=== PATIENT | female | born 1945 | race Caucasian/White ===

== ENCOUNTER 2017-07-01 20:49 | Inpatient (IN) | payer MEDICARE, MEDICAID ==
[~2017-07-01] VITALS: Ht 160 cm; Wt 44.0 kg
[2017-07-01 20:30] VITALS: BP 126/84
--- NOTE | 2017-07-01 21:30 | NUR ---
EMAIL MARKETING COORDINATOR NOTE 2030 PT ARRIVED VIA GURNEY BROUGHT BY AMBULANCE. BEDSIDE ENDORSEMENT GIVEN BY NURSE ACCOMPANIED BY AMBULANCE. PT ABLE TO RESPOND WITH "HI" IN THE BEGINNING. PER AMBULANCE NURSE, PT HAS BEEN NONVERBAL. PT REMAINS OBTUNDED. RESPIRATIONS ARE EVEN AND UNLABORED, NOT IN ANY ACUTE DISTRESS NOTED. PUPILS ARE VERY SLUGGISH. 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 NO FACIAL GRIMACING OR MOANING NOTED. UNABLE TO PERFORM PROM TO BUE/BLE. NO SKIN INJURIES NOTED. PERIPHERAL IV TO LEFT WRIST NOTED TO BE PATENT AND INTACT. DRESSING KEPT CLEAN AND DRY. ABDOMEN IS SOFT AND NONDISTENDED. HYPOACTIVE BOWEL SOUNDS TO ALL 4 QUADRANTS UPON AUSCULTATION. CURRENTLY HAS A URBAN CATH, DRAINING WELL AND FREE OF KINKS. URINE IS DARK YELLOW W/ NO SEDIMENTS NOTED. NO FACIAL GRIMACING UPON PALPATION OF BLADDER. PT ON TELE WITH SR 90 W/ PVCs. VITAL SIGNS: BP 126/84 P107 R26 T97.6 SPO2 97% RA. DR. SMITH MADE AWARE OF NEW ADMISSION. PT SEEN AND EXAMINED BY DR. SMITH WITH ORDERS CARRIED OUT. D/C IV 0.9%NS @100ML/HR, NEW ORDER FOR IV 1/2 NS 100ML/HR, INSERTION OF NGT FOR FREE WATER FLUSHING OF 200CC Q6H, COLLECT UA, AND MRSA SURVEILLANCE. SAFETY MEASURES IN PLACE, CALL LIGHT LEFT WITHIN REACH. WILL CONTINUE TO MONITOR PT THROUGHOUT SHIFT.
[2017-07-01] MEDS ORDERED: IV NS 0.9% 1,000 ML IV PRN (21:33)
[2017-07-01] MEDS ORDERED: MAGNESIUM HYDROXIDE 30 ML UDC PO PRN (22:00)
[2017-07-01] MEDS ORDERED: MAG HYDROX/AL HYDROX/SIMETH 30 ML UDC PO PRN (22:00)
[2017-07-01] MEDS ORDERED: HYDROCODONE/APAP 5/325MG 1 EACH TABLET PO PRN (22:00)
[2017-07-01] MEDS ORDERED: ONDANSETRON HCL/PF 4 MG/2 ML VIAL IVP PRN (22:00)
[2017-07-01] MEDS ORDERED: ACETAMINOPHEN 325 MG TABLET PO PRN (22:00)
[2017-07-01] MEDS ORDERED: ZOLPIDEM TARTRATE 5 MG TABLET PO PRN (22:00)
[2017-07-01] MEDS ORDERED: Z GUARD REMEDY 2 OZ OINT TP PRN (22:00)
[2017-07-01 22:42] LABS: BASOPHILS # (AUTO) 0.1 /CMM (0.0-0.2); BASOPHILS % (AUTO) 0.7 % (0.0-2.0); EOSINOPHILS # (AUTO) 0.2 /CMM (0.0-0.7); EOSINOPHILS % (AUTO) 1.4 % (0.0-6.0); HEMATOCRIT 45 % (33-45); LYMPHOCYTES # (AUTO) 2.8 /CMM (0.8-4.8); LYMPHOCYTES % (AUTO) 19.7 % (20.0-44.0); MEAN CORPUSCULAR HEMOGLOBIN 28 PG (26.0-33.0); MEAN CORPUSCULAR HGB CONC 33 g/dl (31.0-36.0); MEAN CORPUSCULAR VOLUME 84 fL (82-100); MONOCYTES # (AUTO) 1.9 /CMM (0.1-1.30); MONOCYTES % (AUTO) 13.6 % (2.0-12.0); NEUTROPHILS % (AUTO) 64.6 % (43.0-81.0); PLATELET COUNT (AUTO) 253 /CMM (150-450); RDW COEFFICIENT OF VARIATION 15.7 (11.5-15.0); RED BLOOD CELL COUNT(AUTO) 5.36 MIL/uL (4.0-5.2)
[2017-07-01 23:03] LABS: TROPONIN I 0.093 ng/mL (0.00-0.056)
[2017-07-01] MEDS ORDERED: ENOXAPARIN SODIUM 40 MG/0.4 ML DISP.SYRIN SQ ONE (23:13)
[2017-07-01 23:20] LABS: ALBUMIN 3.3 g/dL (3.4-5.0); BILIRUBIN,TOTAL 0.4 mg/dL (0.2-1.0); CALCIUM, SERUM 9.5 mg/dL (8.5-10.1); CREATININE 1.1 mg/dL (0.6-1.3); POTASSIUM 3.4 mmol/L (3.5-5.1); TOTAL PROTEIN, SERUM 8.7 g/dL (6.4-8.2)
[2017-07-01] MEDS: IV 1/2NS 1000 ML 1,000 ML IV PRN (23:24)
[2017-07-01] MEDS: ENOXAPARIN SODIUM 40 MG/0.4 ML DISP.SYRIN SQ SCH (23:25)
[2017-07-01] MEDS ORDERED: OMEP20CA10 PO (23:43)
[2017-07-01] MEDS ORDERED: QUET200T PO (23:43)
[2017-07-01] MEDS ORDERED: RISP1TAB7 PO (23:43)
[2017-07-01] MEDS ORDERED: FLUT1BLS IH (23:43)
[2017-07-01] MEDS ORDERED: RISP3TAB5 PO (23:43)
[2017-07-01] MEDS ORDERED: DIVA250T PO (23:43)
[2017-07-01] MEDS ORDERED: TRAZ-147 PO (23:43)
[2017-07-01] MEDS ORDERED: MEGE400O5 GT (23:43)
[2017-07-01] MEDS ORDERED: AMLO5TAB2 PO (23:43)
[2017-07-02] VITALS: BP 126/83
--- NOTE | 2017-07-02 | NUR ---
RN NOTES NGT WAS INSERTED WITH CHARGE NURSE AT BEDSIDE. NGT SIZE 14Fr. PT TOLERATED PROCEDURE WELL. INSERTED 10CC OF AIR UPON AUSCULTATION, NO RESIDUAL NOTED. NO COUGHING NOTED. PER PROTOCOL, STAT CHEST XRAY ORDERED FOR NGT PLACEMENT.
[2017-07-02 04:00] VITALS: BP 126/74
[2017-07-02 06:01] LABS: APPEARANCE,URINE CLEAR (CLEAR); BILIRUBIN,URINE NEGATIVE (NEGATIVE); BLOOD, URINE TRACE Ery/uL (NEGATIVE); COLOR,URINE YELLOW (YELLOW); KETONES,URINE NEGATIVE (NEGATIVE); LEUKOCYTE ESTERASE ,URINE NEGATIVE (NEGATIVE); NITRITE, URINE NEGATIVE (NEGATIVE); PROTEIN,URINE NEGATIVE (NEGATIVE); UGLUCOSE NEGATIVE (NEGATIVE); UROBILINOGEN,URINE 0.2 EU/dL (0.2)
[2017-07-02 06:22] LABS: BACTERIA,URINE None seen /HPF (None Seen); SQUAMOUS EPITHELIAL CELL,UR Few /HPF (None Seen)
--- NOTE | 2017-07-02 06:30 | NUR ---
RN CLOSING NOTES ALL DUE MEDS GIVEN, NEEDS MET AND RENDERED. PT REMAINS OBTUNDED AT THIS TIME. REMAINS AFEBRILE, RESPIRATIONS ARE EVEN AND UNLABORED, NOT IN ANY ACUTE DISTRESS NOTED. NO FACIAL GRIMACING OR MOANING NOTED. CHEST XRAY CAME BACK WITH NGT PLACEMENT PLACED IN PROPER POSITION, FLUSED 200CC OF FREE WATER Q6H, PT ABLE TO TOLERATE W/ NO RESIDUAL NOTED. NO NEW SKIN INJURIES NOTED. REPOSITIONED Q2H TO PREVENT NEW SKI NINJURIES, BILATERAL HEELS ARE OFFLOADED. SAFETY MEASURES IN PLACE. CALL LIGHT LEFT WITHIN REACH. WILL ENDORSE TO NEXT SHIFT FOR CONTINUITY OF CARE.
[2017-07-02 06:42] LABS: BASOPHILS # (AUTO) 0.1 /CMM (0.0-0.2); BASOPHILS % (AUTO) 0.5 % (0.0-2.0); EOSINOPHILS # (AUTO) 0.2 /CMM (0.0-0.7); EOSINOPHILS % (AUTO) 1.8 % (0.0-6.0); HEMATOCRIT 43 % (33-45); HEMOGLOBIN 14.2 g/dL (11.5-14.8); LYMPHOCYTES # (AUTO) 2.6 /CMM (0.8-4.8); LYMPHOCYTES % (AUTO) 22.8 % (20.0-44.0); MEAN CORPUSCULAR HEMOGLOBIN 28 PG (26.0-33.0); MEAN CORPUSCULAR HGB CONC 33 g/dl (31.0-36.0); MEAN CORPUSCULAR VOLUME 84 fL (82-100); MONOCYTES # (AUTO) 1.1 /CMM (0.1-1.30); MONOCYTES % (AUTO) 9.4 % (2.0-12.0); NEUTROPHILS # (AUTO) 7.5 /CMM (1.8-8.9); NEUTROPHILS % (AUTO) 65.5 % (43.0-81.0); PLATELET COUNT (AUTO) 246 /CMM (150-450); RDW COEFFICIENT OF VARIATION 15.6 (11.5-15.0); RED BLOOD CELL COUNT(AUTO) 5.09 MIL/uL (4.0-5.2); WHITE BLOOD COUNT (AUTO) 11.4 K/uL (4.3-11.0)
[2017-07-02 07:11] LABS: POTASSIUM 3.3 mmol/L (3.5-5.1)
[2017-07-02 07:27] LABS: THYROID STIMULATING HORMONE 1.898 uIU/mL (0.358-3.74)
[2017-07-02 07:29] LABS: ALBUMIN 3.2 g/dL (3.4-5.0); BILIRUBIN,TOTAL 0.6 mg/dL (0.2-1.0); CREATININE 0.9 mg/dL (0.6-1.3); MAGNESIUM 2.4 mg/dL (1.8-2.4); PHOSPHORUS 3.6 mg/dL (2.5-4.9); TOTAL PROTEIN, SERUM 8.2 g/dL (6.4-8.2)
[2017-07-02 09:54] LABS: THYROID STIMULATING HORMONE 1.883 uIU/mL (0.358-3.74)
[2017-07-02] MEDS: IV 1/2NS 1000 ML 1,000 ML IV PRN ×3 (10:34→19:31)
[2017-07-02] MEDS ORDERED: POTASSIUM CHLORIDE 20 MEQ TAB.PRT.SR PO SCH (11:00)
[2017-07-02] MEDS ORDERED: POTASSIUM CHLORIDE 20 MEQ POWDER PACKET PO ONE (11:30)
--- NOTE | 2017-07-02 11:30 | NUR ---
gino peguero ross lift operator and dr. morales in to see pt. pt. occasionally answers questions when spoken to,very confused,ng clamped.urine sent per orders of dr. morales.vs stable.ng to be flushed q 6 hrs.
[2017-07-02] MEDS ORDERED: DIVALPROEX SODIUM 250 MG TABLET.DR PO SCH (12:00)
[2017-07-02 13:31] LABS: URINE TOTAL PROTEIN 22.9 mg/dL (0-11.9)
--- NOTE | 2017-07-02 15:00 | NUR ---
pt. endorsed to amrvin.
--- NOTE | 2017-07-02 15:00 | NUR ---
RECEIVED SBAR FROM CHARMAINE FOR CHAUNCEY.
--- NOTE | 2017-07-02 19:10 | NUR ---
RN OPENING NOTES RECEIVED PATIENT IN BED, NON VERBAL, NOTED WITH NO SOB, BREATHING EVEN AND UNLABORED, IN NO ACUTE DISTRESS, EYES OPEN, RESPONSIVE TO VERBAL STIMULI. PATIENT CONTINUES TO RECEIVE IVF ORDERED, NG-TUBE IN PLACE, URBAN CATHETER DRAINING WELL WITH YELLOW URINE. ALL PATIENT'S NEEDS ATTENDED TO AT THIS TIME. WILL CONTINUE TO MONITOR. BED PLACED IN LOW POSITION, LOCKED IN PLACE. CALL LIGHT PLACED WITHIN EASY REACH. WILL CONTINUE TO MONITOR.
--- NOTE | 2017-07-02 19:13 | NUR ---
RN CLOSING NOTE GAVE SBAR REPORT ON PATIENT FOR CHAUNCEY. PATIENT IS ASLEEP, AWAKEN TO TOUCH, NON VERBAL. NF TUBE PRESENT, CLAMPED. URBAN CATHETER PRESENT WITH 450CC OUTPUT. VS WNL. PATIENT IS IN BED. BED IS LOCKED IN LOWEST POSITION, SIDE RAILS UP X3, BED ALARM IS ON. ALL NEEDS ARE MET. NON S/S OF PAIN/DISTRESS/DISCOMFORT. CHEST IS RISING EUQLLY NILATERALLY. ENDORSED TO THE INSURANCE CLAIMS EXAMINER NURSE RANDI FOR CHAUNCEY.
[2017-07-02 20:00] VITALS: BP 139/84
[2017-07-02] MEDS: ENOXAPARIN SODIUM 40 MG/0.4 ML DISP.SYRIN SQ SCH (22:22)
[2017-07-03] MEDS: IV 1/2NS 1000 ML 1,000 ML IV PRN ×3 (04:35→22:33)
[2017-07-03 06:16] LABS: BASOPHILS # (AUTO) 0.1 /CMM (0.0-0.2); BASOPHILS % (AUTO) 0.6 % (0.0-2.0); EOSINOPHILS # (AUTO) 0.3 /CMM (0.0-0.7); EOSINOPHILS % (AUTO) 2.7 % (0.0-6.0); HEMATOCRIT 39 % (33-45); LYMPHOCYTES # (AUTO) 2.7 /CMM (0.8-4.8); LYMPHOCYTES % (AUTO) 24.5 % (20.0-44.0); MEAN CORPUSCULAR HEMOGLOBIN 28 PG (26.0-33.0); MEAN CORPUSCULAR HGB CONC 33 g/dl (31.0-36.0); MEAN CORPUSCULAR VOLUME 84 fL (82-100); MONOCYTES % (AUTO) 9.1 % (2.0-12.0); NEUTROPHILS # (AUTO) 6.9 /CMM (1.8-8.9); NEUTROPHILS % (AUTO) 63.1 % (43.0-81.0); PLATELET COUNT (AUTO) 208 /CMM (150-450); RDW COEFFICIENT OF VARIATION 15.7 (11.5-15.0); RED BLOOD CELL COUNT(AUTO) 4.67 MIL/uL (4.0-5.2); WHITE BLOOD COUNT (AUTO) 10.9 K/uL (4.3-11.0)
[2017-07-03 06:29] LABS: ALBUMIN 2.9 g/dL (3.4-5.0); BILIRUBIN,TOTAL 0.8 mg/dL (0.2-1.0); CALCIUM, SERUM 8.7 mg/dL (8.5-10.1); CREATININE 0.7 mg/dL (0.6-1.3); MAGNESIUM 2.1 mg/dL (1.8-2.4); POTASSIUM 3.5 mmol/L (3.5-5.1); TOTAL PROTEIN, SERUM 7.6 g/dL (6.4-8.2)
--- NOTE | 2017-07-03 06:40 | NUR ---
RN CLOSING NOTES PATIENT IN BED, ALERT AND ORIENTED TO SELF, VERBALLY RESPONSIVE AT TIMES, NOTED WITH NO FACIAL GRIMACING, NO SOB. BREATHING EVEN AND UNLABORED, IN NO ACUTE DISTRESS. ALL PATIENT'S NEEDS ATTENDED TO, CALL LIGHT PLACED WITHIN EASY REACH, PLACED BED IN LOW POSITION AND LOCKED IN PLACE. PATIENT CONTINUES TO RECEIVE IVF ORDERED, NG TUBE PATENT AND IN PLACE. WILL ENDORSE TO AM NURSE FOR COBNTINUITY OF CARE.
--- NOTE | 2017-07-03 07:00 | NUR ---
RN NOTE RECEIVED CALL FROM LAB FOR RESULTS OF SODIUM LEVEL = 166 AND CHLORIDE LEVEL = 133. LEVELS TRENDING DOWN, WILL ENDORSE TO AM NURSE FOR CONTINUITY OF CARE.
--- NOTE | 2017-07-03 07:24 | NUR ---
MS RN OPENING NOTES RECEIVED PT FROM NIGHTSHIFT NURSE IN STABLE CONDITION. PT IS A/O X1. NO SOB OR SIGNS OF DISTRESS NOTED. PT REMOVED NG TUBE PER NIGHTSHIFT NURSE. MARISSA THE SOFTWARE QUALITY TESTER MADE AWARE AND GAVE ORDERS TO REINSERT NG TUBE AND ORDER RESTRAINTS IF NEEDED. URBAN CATHETER NOTED TO BE DRAINING CLEAR YELLOW URINE. IV NOTED TO BE PATENT AND INTACT INFUSING 1/2 NS ORDERED. NO REDNESS OR SIGNS OF INFILTRATION NOTED. BED IN LOW LOCKED POSITION, SIDE RAILS UP X3, CALL LIGHT WITHIN REACH. WILL CONTINUE TO MONITOR.
[2017-07-03 08:00] VITALS: BP 135/85
[2017-07-03] MEDS ORDERED: AMLODIPINE BESYLATE 5 MG TABLET PO SCH (09:00)
--- NOTE | 2017-07-03 10:44 | NUR ---
MS RN NOTES MARISSA THE PHARMACIST CRITICAL CARE PLACED PT'S NG TUBE. PLACEMENT VERIFIED BY CHARGE NURSE AND CHEST XRAY.
[2017-07-03] MEDS ORDERED: PHARMACY TO CHANGE PO MEDS TO GT/NG XX PRN (11:00)
[2017-07-03] MEDS ORDERED: MAG HYDROX/AL HYDROX/SIMETH 30 ML UDC NG PRN (11:13)
[2017-07-03] MEDS ORDERED: MAGNESIUM HYDROXIDE 30 ML UDC NG PRN (11:13)
[2017-07-03] MEDS ORDERED: HYDROCODONE/APAP 5/325MG 1 EACH TABLET NG PRN (11:13)
[2017-07-03] MEDS ORDERED: ZOLPIDEM TARTRATE 5 MG TABLET NG PRN (11:14)
[2017-07-03] MEDS: risperiDONE 1 MG TABLET PO SCH (11:22)
[2017-07-03] MEDS: VALPROIC ACID 250 MG/5 ML UDC NG SCH (11:22)
[2017-07-03] MEDS ORDERED: ACETAMINOPHEN 650 MG/20.3 ML UDC NG PRN (11:30)
[2017-07-03] MEDS ORDERED: AMLODIPINE BESYLATE 5 MG TABLET NG ONE (11:30)
[2017-07-03 12:00] VITALS: BP_SYST 129; BP_SYST 130; BP_DIAS 76; BP_DIAS 84
[2017-07-03 16:00] VITALS: BP 100/65
--- NOTE | 2017-07-03 19:20 | NUR ---
RN OPENING NOTES PATIENT IN BED, COMFORTABLE, ALERT TO SELF, VERBALLY RESPONSIVE, WITH NO SOB, BREATHING EVEN AND UNLABORED, NG TUBE IN PLACE, PATIENT CONTINUES TO RECEIVE IVF ORDERED. ALL PATIENT'S NEEDS ATTENDED TO AT THIS TIME, PLACED BED IN LOW POSITION, LOCKED IN PLACE. NOTED PATIENT WITH BILATERAL HAND MITTENS. WILL CONTINUE TO MONITOR PATIENT.
--- NOTE | 2017-07-03 19:27 | NUR ---
MS RN CLOSING NOTES PT REMAINS IN STABLE CONDITION. ALL NEEDS MET DURING SHIFT AND ORDERS CARRIED OUT ACCORDINGLY. ALL DUE MEDS GIVEN. PT WAS REPOSITIONED AND TURNED PER PROTOCOL. NG TUBE REMAINS PATENT AND INTACT. VITALS STABLE THROUGHOUT SHIFT. WILL ENDORSE TO NIGHTSHIFT NURSE FOR CHAUNCEY
[2017-07-03 20:11] VITALS: BP 111/71
[2017-07-03] MEDS: ENOXAPARIN SODIUM 40 MG/0.4 ML DISP.SYRIN SQ SCH (22:35)
[2017-07-04 06:45] LABS: CALCIUM, SERUM 8.3 mg/dL (8.5-10.1); CREATININE 0.5 mg/dL (0.6-1.3); POTASSIUM 3.5 mmol/L (3.5-5.1)
--- NOTE | 2017-07-04 06:47 | NUR ---
RN CLOSING NOTES PATIENT IN BED, ASLEEP BUT EASILY AROUSABLE, NOTED WITH NO SOB, BREATHING EVEN AND UNLABORED, IN NO ACUTE DISTRESS. PT IS ALERT TO SELF, VERBALLY RESPONSIVE BUT STILL CONFUSED. ALL PATIENT'S NEEDS ATTENDED TO AT THIS TIME, CONTINUES TO RECEIVE IVF ORDERED VIA IV PERIPHERAL LINE ON LEFT WRIST. NG TUBE IN PLACE, PATENT, FLUSHED ORDERED. ALL PATIENT'S NEEDS ATTENDED TO AT THIS TIME, CALL LIGHT PLACED WITHIN EASY REACH, BED IN LOW POSITION, LOCKED IN PLACE. WILL CONTINUE TO MONITOR.
[2017-07-04 08:13] VITALS: BP_SYST 143; BP_SYST 163; BP_DIAS 69; BP_DIAS 97
[2017-07-04] MEDS: VALPROIC ACID 250 MG/5 ML UDC NG SCH (08:22)
[2017-07-04] MEDS: AMLODIPINE BESYLATE 5 MG TABLET NG SCH (08:22)
[2017-07-04] MEDS: risperiDONE 1 MG TABLET PO SCH (08:22)
[2017-07-04] MEDS: IV 1/2NS 1000 ML 1,000 ML IV PRN ×2 (08:27→21:37)
[2017-07-04 10:00] VITALS: BP 143/69
--- NOTE | 2017-07-04 17:00 | NUR ---
MSRN NOTES. NGT TUBE D/C PER MD. LOPEZ D/C.
[2017-07-04 18:13] VITALS: BP 118/70
--- NOTE | 2017-07-04 18:42 | NUR ---
MSRN CLOSING NOTES. PT REMAINS A&0X1, PT WITH PERIOD OF CONFUSED CONVERSATION BUT PREDOMINANTLY ONE WORD RESPONSES. TOLERATING ROOM AIR WITH EVEN UNLABORED RESPIRATIONS AND SAO2 WNL. PT DENIES PAIN AND IS WITHOUT S/S OF DISTRESS OR DISCOMFORT. PT WITH IVC AT L WRIST INTACT AND OPERATIONAL. PT BED IN LOWEST LOCKED POSITION WITH HANDRAILSX4 AND CALL SANTANA WITHIN REACH. ALL DAY NURSE DUTIES ATTENDED TO, PT WITHOUT CONCERN OR COMPLAINT AT THIS TIME. WILL ENDORSE TO NIGHT NURSE.
[2017-07-04 20:00] VITALS: BP 114/69
[2017-07-04] MEDS: ENOXAPARIN SODIUM 40 MG/0.4 ML DISP.SYRIN SQ SCH (23:05)
--- NOTE | 2017-07-05 01:38 | NUR ---
MS/RN PATIENT IS SLEEPING AT THIS TIME, AROUSABLE, APPEAR COMFORTABLE, NO DISTRESS NOTED, CALL LIGHT IN REACH. WILL CONTINUE TO MONITOR.
[2017-07-05 06:58] LABS: BASOPHILS % (AUTO) 0.5 % (0.0-2.0); EOSINOPHILS # (AUTO) 0.3 /CMM (0.0-0.7); EOSINOPHILS % (AUTO) 3.4 % (0.0-6.0); HEMATOCRIT 37 % (33-45); HEMOGLOBIN 12.4 g/dL (11.5-14.8); LYMPHOCYTES # (AUTO) 2.4 /CMM (0.8-4.8); LYMPHOCYTES % (AUTO) 25.7 % (20.0-44.0); MEAN CORPUSCULAR HEMOGLOBIN 28 PG (26.0-33.0); MEAN CORPUSCULAR HGB CONC 33 g/dl (31.0-36.0); MEAN CORPUSCULAR VOLUME 85 fL (82-100); MONOCYTES % (AUTO) 10.8 % (2.0-12.0); NEUTROPHILS # (AUTO) 5.7 /CMM (1.8-8.9); NEUTROPHILS % (AUTO) 59.6 % (43.0-81.0); PLATELET COUNT (AUTO) 166 /CMM (150-450); RDW COEFFICIENT OF VARIATION 15.2 (11.5-15.0); RED BLOOD CELL COUNT(AUTO) 4.42 MIL/uL (4.0-5.2); WHITE BLOOD COUNT (AUTO) 9.5 K/uL (4.3-11.0)
--- NOTE | 2017-07-05 07:00 | NUR ---
MS/RN PATIENT SLEEPING, AROUSABLE, COMFORTABLE, NO DISTRESS NOTE, ALL NEEDS ATTENDED AT THIS TIME. ENDORSED TO NEXT RN FOR CONTINUITY OF CARE.
[2017-07-05 07:10] LABS: CALCIUM, SERUM 8.1 mg/dL (8.5-10.1); CREATININE 0.5 mg/dL (0.6-1.3); POTASSIUM 3.7 mmol/L (3.5-5.1)
--- NOTE | 2017-07-05 07:37 | NUR ---
MS/RN OPENING NOTE PATIENT IN BED IN STABLE CONDITION. A/O X 2. NO SIGNS OF ACUTE DISTRESS. NO COMPLAIN OF PAIN OR DISCOMFORT. ALL NEEDS ATTENDED TO. CALL LIGHT WITHIN REACH. WILL CONTINUE TO MONITOR TO ENSURE SAFETY.
[2017-07-05] MEDS: VALPROIC ACID 250 MG/5 ML UDC NG SCH (08:32)
[2017-07-05 08:33] VITALS: BP 136/73
[2017-07-05] MEDS: AMLODIPINE BESYLATE 5 MG TABLET NG SCH (08:33)
[2017-07-05] MEDS: risperiDONE 1 MG TABLET PO SCH (08:33)
[2017-07-05] MEDS: IV 1/2NS 1000 ML 1,000 ML IV PRN (08:38)
--- NOTE | 2017-07-05 13:50 | NUR ---
MS/GREY ROLL MAN PATIENT DISCHARGE TO [facility] BOARD AND [facility]. A/O X 1. NO SIGNS OF ACUTE DISTRESS. NO COMPLAIN OF PAIN OR DISCOMFORT. DISCHARGE INSTRUCTIONS AND TEACHINGS PROVIDED, UNABLE TO COMPREHEND. REPORT GIVEN TO BOARD AND CARE. NAME BAND AND IV LINE REMOVED. LEFT VIA W/C ACCOMPANIED BY BOARD AND CARE EXHIBIT ELECTRICIAN IN STABLE CONDITION.
== END 2017-07-05 14:16 | disposition home or self-care (01) | DRG 682 ==
LOC: TELE 20:49 → MED 07-02 08:01
PROVIDERS: ADMIT Internal Medicine; ATTEND Internal Medicine
DX: N17.0 Acute kidney failure with tubular necrosis (principal); I21.A1 Myocardial infarction type 2; G93.41 Metabolic encephalopathy; E87.0 Hyperosmolality and hypernatremia; E44.0 Moderate protein-calorie malnutrition; R13.10 Dysphagia, unspecified; F03.90 Unspecified dementia, unspecified severity, without behavioral disturbance, psychotic disturbance, mood disturbance, and anxiety; I10 Essential (primary) hypertension; J43.9 Emphysema, unspecified; Z79.899 Other long term (current) drug therapy; E86.0 Dehydration; F39 Unspecified mood [affective] disorder; F29 Unspecified psychosis not due to a substance or known physiological condition; R74.0 Nonspecific elevation of levels of transaminase and lactic acid dehydrogenase [LDH]; D72.829 Elevated white blood cell count, unspecified; E87.6 Hypokalemia; I67.2 Cerebral atherosclerosis
CPT/HCPCS: 36415; 70450-TC; 71045-TC; 80048-TC; 80053-TC; 80061-TC; 80164-TC; 81000-TC; 82570-TC; 83735-TC; 84100-TC; 84155-TC; 84300-TC; 84439-TC; 84443-TC; 84484-TC; 85025-TC; 87081-TC; 87086-TC; 92611-TC; 93307-TC; J1650; J3490; J7030; J7042

== ENCOUNTER 2017-07-13 20:14 | Inpatient (IN) | payer MEDICARE, MEDICAID ==
[~2017-07-13] VITALS: Ht 157.5 cm; Wt 44.9 kg
[~2017-07-13 20:14] MED LIST: AMLO5TAB2 PO; DIVA250T PO; FLUT1BLS IH; MEGE400O5 GT; OMEP20CA10 PO; RISP1TAB7 PO
--- NOTE | 2017-07-13 20:25 | NUR ---
TO BED 7 A 72 YO FEMALE PATIENT BIBTRANSPORT AND "PER FACILITY TRANSFER "THEY TOLD ME TO SHE NEEDED OXYGEN." UPON ARRIVAL TO ER, PATIENT IS ALERT ORIENTED TO NAME AND RESPONSIVE. NO SOB. BREATHING EVEN AND UNLABORED. DENIES ANY COMPLAINTS AT THIS TIME. PLACED ON CARDIAC AND VS MONITORING, NOTED PATIENT WITH SINUS TACHY. GOWNED. COMFORT MEASURES RENDERED.
[2017-07-13] MEDS ORDERED: IV NS 0.9% 1,000 ML BAG IV ONE ×2 (21:00→23:30)
--- NOTE | 2017-07-13 21:15 | NUR ---
STARTED A SALINE LOCK ON THE RIGHT WRIST G22.
--- NOTE | 2017-07-13 21:20 | NUR ---
NREMT AT BEDSIDE TO DRAW BLOOD.
[2017-07-13 21:27] LABS: EOSINOPHILS # (AUTO) 0.2 /CMM (0.0-0.7); HEMOGLOBIN 15.2 g/dL (11.5-14.8); NEUTROPHILS # (AUTO) 7.8 /CMM (1.8-8.9); WHITE BLOOD COUNT (AUTO) 10.8 K/uL (4.3-11.0)
[2017-07-13 21:29] LABS: BASOPHILS % (AUTO) 0.3 % (0.0-2.0); EOSINOPHILS % (AUTO) 1.8 % (0.0-6.0); HEMATOCRIT 45 % (33-45); LYMPHOCYTES # (AUTO) 1.9 /CMM (0.8-4.8); LYMPHOCYTES % (AUTO) 17.4 % (20.0-44.0); MEAN CORPUSCULAR HEMOGLOBIN 28 PG (26.0-33.0); MEAN CORPUSCULAR HGB CONC 34 g/dl (31.0-36.0); MEAN CORPUSCULAR VOLUME 83 fL (82-100); MONOCYTES # (AUTO) 0.9 /CMM (0.1-1.30); MONOCYTES % (AUTO) 8.4 % (2.0-12.0); NEUTROPHILS % (AUTO) 72.1 % (43.0-81.0); PLATELET COUNT (AUTO) 180 /CMM (150-450); RDW COEFFICIENT OF VARIATION 14.9 (11.5-15.0); RED BLOOD CELL COUNT(AUTO) 5.44 MIL/uL (4.0-5.2)
[2017-07-13 21:36] LABS: CALCIUM, SERUM 9.4 mg/dL (8.5-10.1); CREATININE 0.6 mg/dL (0.6-1.3); POTASSIUM 4.3 mmol/L (3.5-5.1)
[2017-07-13 21:44] LABS: TROPONIN I 0.242 ng/mL (0.00-0.056)
[2017-07-13 21:48] LABS: ALBUMIN 2.5 g/dL (3.4-5.0); BILIRUBIN,DIRECT 0.2 mg/dL (0.0-0.2); BILIRUBIN,TOTAL 0.8 mg/dL (0.2-1.0); TOTAL PROTEIN, SERUM 8.6 g/dL (6.4-8.2)
--- NOTE | 2017-07-13 21:54 | NUR ---
XR AT BEDSIDE.
[2017-07-13 22:47] LABS: APPEARANCE,URINE CLEAR (CLEAR); BILIRUBIN,URINE NEGATIVE (NEGATIVE); BLOOD, URINE NEGATIVE Ery/uL (NEGATIVE); COLOR,URINE YELLOW (YELLOW); KETONES,URINE TRACE (NEGATIVE); LEUKOCYTE ESTERASE ,URINE NEGATIVE (NEGATIVE); NITRITE, URINE NEGATIVE (NEGATIVE); PROTEIN,URINE TRACE mg/dl (NEGATIVE); UGLUCOSE NEGATIVE (NEGATIVE)
[2017-07-13 22:52] LABS: BACTERIA,URINE Moderate /HPF (None Seen); RBC,URINE 0-2 /HPF (0-2); SQUAMOUS EPITHELIAL CELL,UR Few /HPF (None Seen)
[2017-07-13] MEDS ORDERED: ASPIRIN 325 MG TABLET ONE (22:59)
[2017-07-13] MEDS ORDERED: ASPIRIN 325 MG TABLET PO ONE (23:00)
[2017-07-13 23:01] LABS: INR 1.06 (0.87-1.13)
[2017-07-13] MEDS ORDERED: PIPERACILLIN /TAZOBACTAM 3.375 G in IV D5W 50 ML IV ONE (23:30)
--- NOTE | 2017-07-13 23:30 | NUR ---
PAGED DIETARY AIDE COOK PANEL
[2017-07-13] MEDS ORDERED: PIPERACILLIN /TAZOBACTAM 3.375 G VIAL IV ONE (23:37)
[2017-07-14] MEDS ORDERED: IV 1/2NS 1000 ML 1,000 ML IV PRN (00:13)
[2017-07-14] MEDS ORDERED: ONDANSETRON HCL/PF 4 MG/2 ML VIAL IVP PRN (00:30)
[2017-07-14] MEDS ORDERED: HYDROCODONE/APAP 5/325MG 1 EACH TABLET PO PRN (00:30)
[2017-07-14] MEDS ORDERED: MAG HYDROX/AL HYDROX/SIMETH 30 ML UDC PO PRN (00:30)
[2017-07-14] MEDS ORDERED: MAGNESIUM HYDROXIDE 30 ML UDC PO PRN (00:30)
[2017-07-14] MEDS ORDERED: ACETAMINOPHEN 325 MG TABLET PO PRN (00:30)
[2017-07-14] MEDS ORDERED: Z GUARD REMEDY 2 OZ OINT TP PRN (00:30)
--- NOTE | 2017-07-14 00:53 | NUR ---
REPORT GIVEN TO RVI RN FOR TELE ADMISSION AND CHAUNCEY.
[2017-07-14 01:15] VITALS: BP 128/68
--- NOTE | 2017-07-14 01:15 | NUR ---
RN NOTES RECEIVED PATIENT FROM ER WITH ORDER TO ADMIT TO [facility] FOR DX DEHYDRATION. CHARGE NURSE MADE AWARE.
--- NOTE | 2017-07-14 01:15 | NUR ---
TRANSFERRED PATIENT TO TELE BED VIA ALS PROTOCOL, NO INCIDENT NOTED.
--- NOTE | 2017-07-14 01:40 | NUR ---
RN NOTES REPORT GIVEN TO PAIGE MCKEON. PATIENT TO BE ADMITTED AT [facility] 2 FLOOR.
--- NOTE | 2017-07-14 01:45 | NUR ---
RN NOTES PATIENT TRANSFERRED TO [facility] 2 FLOOR. PAIGE MCKEON AWARE.
--- NOTE | 2017-07-14 02:09 | NUR ---
RN NOTES PATIENT RETURNED TO [facility] THIRD FLOOR. RECEIVED PATIENT FROM CRISTOBAL MCKEON.
[2017-07-14 02:15] VITALS: BP 128/68
[2017-07-14 04:00] VITALS: BP 122/75
[2017-07-14] MEDS ORDERED: PIPERACILLIN /TAZOBACTAM 3.375 G VIAL IV ONE (05:45)
[2017-07-14] MEDS ORDERED: PIPERACILLIN /TAZOBACTAM 3.375 G in IV D5W 50 ML IV SCH (06:00)
--- NOTE | 2017-07-14 06:25 | NUR ---
RN NOTES PATIENT ASLEEP, EASILY AROUSABLE. RESPIRATIONS EVEN. NO SIGNS OF PAIN NOTED. IVF INFUSING ORDERED. NEEDS ATTENDED. SAFETY PRECAUTIONS AND COMFORT MEASURES IN PLACE. REPOSITIONED REGULARLY. WILL GIVE REPORT TO DAY SHIFT FOR CONTINUITY OF CARE.
--- NOTE | 2017-07-14 07:54 | NUR ---
RN OPENING NOTES RECEIVED PATIENT RESTING COMFORTABLY IN BED. AOX1. NO ACUTE DISTRESS NOTED. RESPIRATIONS APPEAR EVEN AND UNLABORED. ON TELE READING SR. IV ACCESS PATENT AND INTACT. RFA 22G WITH 1/2 NS RUNNING AT 60ML/HR. BED LOCKED IN THE LOWEST POSITION WITH SIDERAILS UP X2. CALL LIGHT WITHIN REACH. WILL CONTINUE TO MONITOR, ASSESS AND EDUCATE PATIENT THROUGHOUT SHIFT.
[2017-07-14 08:00] VITALS: BP 101/63
[2017-07-14] MEDS: MEGESTROL ACETATE SUSP 400 MG/10 ML UDC GT SCH ×3 (08:39→17:50)
[2017-07-14] MEDS: PANTOPRAZOLE 40 MG TABLET.DR PO SCH (08:39)
[2017-07-14] MEDS: ASPIRIN 81 MG TAB.CHEW PO SCH (08:39)
[2017-07-14] MEDS: AMLODIPINE BESYLATE 5 MG TABLET PO SCH (08:45)
[2017-07-14] MEDS: risperiDONE 1 MG TABLET PO SCH (08:46)
[2017-07-14] MEDS: DIVALPROEX SODIUM 250 MG TABLET.DR PO SCH (08:47)
[2017-07-14] MEDS: FLUTICASONE/VILANTEROL 1 EACH BLST.W.DEV IH SCH (08:47)
[2017-07-14 09:16] LABS: BASOPHILS % (AUTO) 0.2 % (0.0-2.0); EOSINOPHILS # (AUTO) 0.2 /CMM (0.0-0.7); EOSINOPHILS % (AUTO) 1.8 % (0.0-6.0); HEMATOCRIT 33 % (33-45); HEMOGLOBIN 11.1 g/dL (11.5-14.8); LYMPHOCYTES # (AUTO) 1.7 /CMM (0.8-4.8); LYMPHOCYTES % (AUTO) 17.1 % (20.0-44.0); MEAN CORPUSCULAR HEMOGLOBIN 28 PG (26.0-33.0); MEAN CORPUSCULAR HGB CONC 33 g/dl (31.0-36.0); MEAN CORPUSCULAR VOLUME 84 fL (82-100); MONOCYTES # (AUTO) 0.9 /CMM (0.1-1.30); MONOCYTES % (AUTO) 8.6 % (2.0-12.0); NEUTROPHILS # (AUTO) 7.3 /CMM (1.8-8.9); NEUTROPHILS % (AUTO) 72.3 % (43.0-81.0); PLATELET COUNT (AUTO) 171 /CMM (150-450); RDW COEFFICIENT OF VARIATION 15.3 (11.5-15.0); RED BLOOD CELL COUNT(AUTO) 3.97 MIL/uL (4.0-5.2); WHITE BLOOD COUNT (AUTO) 10.1 K/uL (4.3-11.0)
[2017-07-14 09:34] LABS: TROPONIN I 0.19 ng/mL (0.00-0.056)
[2017-07-14] MEDS: ENOXAPARIN SODIUM 40 MG/0.4 ML DISP.SYRIN SQ SCH (10:12)
[2017-07-14] MEDS ORDERED: PIPERACILLIN /TAZOBACTAM 3.375 G in IV NS 0.9% 50 ML IV SCH (12:00)
[2017-07-14 16:00] VITALS: BP 106/68
[2017-07-14] MEDS: IV 1/2NS 1000 ML 1,000 ML IV PRN (17:50)
--- NOTE | 2017-07-14 19:30 | NUR ---
RN NOTES RECEIVED PATIENT IN BED AWAKE, AO X 1, ABLE TO MAKE NEEDS KNOWN. NO ACUTE DISTRESS NOTED. DENIES ANY PAIN AT THIS TIME. IV SITE PATENT, INTACT; IVF INFUSING ORDERED. SAFETY REMINDERS GIVEN. ON LOW BED WITH BILATERAL UPPER SIDE RAILS UP. CALL SANTANA WITHIN EASY REACH. WILL CONTINUE TO MONITOR.
--- NOTE | 2017-07-14 19:30 | NUR ---
RN CLOSING NOTES PATIENT CONDITION REMAINS UNCHANGED. PATIENT IN STABLE CONDITION. NO ACUTE DISTRESS. RESPIRATIONS EVEN AND UNLABORED. AOX1. BED LOCKED IN THE LOWEST POSITION WITH SIDE RAILS UP X2. ALL NEEDS MET. ALL MEDS GIVEN APPROPRIATE.
[2017-07-14 19:44] LABS: THYROID STIMULATING HORMONE 0.48 uIU/mL (0.358-3.74)
[2017-07-14 20:00] VITALS: BP 103/61
[2017-07-14 20:52] LABS: CALCIUM, SERUM 8.1 mg/dL (8.5-10.1); CREATININE 1.7 mg/dL (0.6-1.3); MAGNESIUM 2.1 mg/dL (1.8-2.4); PHOSPHORUS 5.2 mg/dL (2.5-4.9); POTASSIUM 4.6 mmol/L (3.5-5.1)
[2017-07-15] MEDS: IV 1/2NS 1000 ML 1,000 ML IV PRN ×4 (01:41→23:20)
--- NOTE | 2017-07-15 06:27 | NUR ---
RN NOTES PATIENT IN BED ASLEEP, EASILY AROUSABLE. RESPIRATIONS EVEN. NO SIGNS OF PAIN NOTED. IVF INFUSING ORDERED. NEEDS ATTENDED. KEPT CLEAN, DRY AND COMFORTABLE. SAFETY PRECAUTIONS AND COMFORT MEASURES IN PLACE. WILL GIVE REPORT TO DAY SHIFT FOR CONTINUITY OF CARE.
[2017-07-15 07:59] LABS: BASOPHILS # (AUTO) 0.1 /CMM (0.0-0.2); BASOPHILS % (AUTO) 0.7 % (0.0-2.0); EOSINOPHILS # (AUTO) 0.5 /CMM (0.0-0.7); EOSINOPHILS % (AUTO) 4.9 % (0.0-6.0); HEMATOCRIT 30 % (33-45); HEMOGLOBIN 9.8 g/dL (11.5-14.8); LYMPHOCYTES # (AUTO) 1.9 /CMM (0.8-4.8); MEAN CORPUSCULAR HEMOGLOBIN 28 PG (26.0-33.0); MEAN CORPUSCULAR HGB CONC 33 g/dl (31.0-36.0); MEAN CORPUSCULAR VOLUME 85 fL (82-100); MONOCYTES # (AUTO) 0.7 /CMM (0.1-1.30); MONOCYTES % (AUTO) 7.1 % (2.0-12.0); NEUTROPHILS # (AUTO) 6.5 /CMM (1.8-8.9); NEUTROPHILS % (AUTO) 67.3 % (43.0-81.0); PLATELET COUNT (AUTO) 165 /CMM (150-450); RED BLOOD CELL COUNT(AUTO) 3.54 MIL/uL (4.0-5.2); WHITE BLOOD COUNT (AUTO) 9.6 K/uL (4.3-11.0)
[2017-07-15 08:00] VITALS: BP 144/80
--- NOTE | 2017-07-15 08:00 | NUR ---
MS RN NOTES PATIENT IN BED RESTING NO SOB OR ACUTE DISTRESS NOTED. PATIENT ALERT, ORIENTED X2. DENIES ANY PAIN AT THIS TIME. BED IN LOW LOCKED POSITION. CALL LIGHT WITHIN REACH. PERIPHERAL IV INTACT PATENT. WILL CONTINUE TO MONITOR.
[2017-07-15 08:19] LABS: TROPONIN I 0.051 ng/mL (0.00-0.056)
[2017-07-15 08:26] LABS: ALBUMIN 1.8 g/dL (3.4-5.0); BILIRUBIN,TOTAL 0.5 mg/dL (0.2-1.0); CALCIUM, SERUM 7.9 mg/dL (8.5-10.1); CREATININE 0.5 mg/dL (0.6-1.3); PHOSPHORUS 2.5 mg/dL (2.5-4.9); POTASSIUM 3.1 mmol/L (3.5-5.1); TOTAL PROTEIN, SERUM 6.1 g/dL (6.4-8.2)
[2017-07-15] MEDS: PANTOPRAZOLE 40 MG TABLET.DR PO SCH (08:26)
[2017-07-15] MEDS: AMLODIPINE BESYLATE 5 MG TABLET PO SCH (08:26)
[2017-07-15] MEDS: ASPIRIN 81 MG TAB.CHEW PO SCH (08:26)
[2017-07-15] MEDS: MEGESTROL ACETATE SUSP 400 MG/10 ML UDC GT SCH ×3 (08:26→17:33)
[2017-07-15] MEDS: DIVALPROEX SODIUM 250 MG TABLET.DR PO SCH (08:26)
[2017-07-15] MEDS: risperiDONE 1 MG TABLET PO SCH (08:30)
[2017-07-15] MEDS: FLUTICASONE/VILANTEROL 1 EACH BLST.W.DEV IH SCH (08:31)
--- NOTE | 2017-07-15 08:35 | NUR ---
WOUND CARE CONSULT: PT PRESENTS WITH LARGE DEEP TISSUE INJURY IN EVOLUTION TO SACRUM WHICH EXTENDS TO BUTTOCKS WELL SMALL INTACT DEEP TISSUE INJURIES TO UPPER BACK, ALL PRESENT ON ADMISSION. RECOMMENDATIONS MADE FOR WOUND CARE AND SKIN PROTECTION. DISCUSSED WITH NURSING STAFF. SKIN IS VERY DRY. MOISTURIZE DRY SKIN. ALL SKIN PROTECTION MEASURES IN PLACE. WILL SEE PRN. SEGURA ISOFLEX LOW AIRLOSS BED TO BE PLACED. IN AGREEMENT WITH PLAN OF CARE. Addendum: 07/15/17 at 0838 by ROBYN ALFARO WNDNU Amended: Links added.
[2017-07-15] MEDS: ENOXAPARIN SODIUM 40 MG/0.4 ML DISP.SYRIN SQ SCH (08:40)
[2017-07-15] MEDS ORDERED: Potassium Chloride 10 MEQ in IV D5W 1,000 ML IV PRN ×2 (09:00→13:42)
[2017-07-15] MEDS ORDERED: HYDROGEL DRESSING 90 GM TUBE TP PRN (09:00)
[2017-07-15] MEDS: HYDROGEL DRESSING 90 GM TUBE TP SCH (11:17)
[2017-07-15 12:56] LABS: CALCIUM, SERUM 7.7 mg/dL (8.5-10.1); CREATININE 0.6 mg/dL (0.6-1.3); POTASSIUM 3.2 mmol/L (3.5-5.1)
--- NOTE | 2017-07-15 13:40 | NUR ---
MS RN NOTES PATIENT SEEN AND EVALUATED BY DR. BLANDON ORDERS NOTED AND CARRIED OUT.
[2017-07-15 16:00] VITALS: BP 102/54
--- NOTE | 2017-07-15 19:28 | NUR ---
MS RN NOTED PATIENT IN BED RESTING NO SOB OR ACUTE DISTRESS NOTED. PERIPHERAL IV INTACT PATENT. ALL DUE MEDICATIONS ADMINISTERED. ALL NEEDS MET. ENDORSED CARE TO PM SHIFT.
[2017-07-15 20:00] VITALS: BP 137/74
--- NOTE | 2017-07-15 20:00 | NUR ---
GPS RN NOTES RECEIVED PATIENT RESTING IN BED. NO COMPLAINTS VERBALIZED AT THIS TIME. NO RESPIRATORY DISTRESS NOTED. PATIENT APPEARS TO BE QUIET AND CALM. WILL MONITOR PATIENT FOR SAFETY AND BEHAVIORS. Addendum: 07/15/17 at 2015 by MINDI COSTA RN WITH ONGOING 0.45 NS IL AT 200ML/HR.
[2017-07-15 21:10] LABS: CALCIUM, SERUM 7.7 mg/dL (8.5-10.1); CREATININE 0.7 mg/dL (0.6-1.3); POTASSIUM 3.6 mmol/L (3.5-5.1)
[2017-07-16 02:31] LABS: CALCIUM, SERUM 7.2 mg/dL (8.5-10.1); CREATININE 0.5 mg/dL (0.6-1.3); POTASSIUM 3.3 mmol/L (3.5-5.1)
[2017-07-16] MEDS: IV 1/2NS 1000 ML 1,000 ML IV PRN (05:42)
[2017-07-16] MEDS: PANTOPRAZOLE 40 MG TABLET.DR PO SCH (07:32)
[2017-07-16 08:00] VITALS: BP 118/68
--- NOTE | 2017-07-16 08:00 | NUR ---
MS RN NOTES PATIENT IN BED RESTING NO SOB OR ACUTE DISTRESS NOTED. PATIENT ALERT, ORIENTED X2. DENIES ANY PAIN AT THIS TIME. BED IN LOW LOCKED POSITION. CALL LIGHT WITHIN REACH. PATIENT NOTED WITH NO PERIPHERAL IV , ATTEMPTED ONCE BY NIGHT RN UNABLE TO START IV. IV STARTED ON RIGHT HAND G22 WITH GOOD BLOOR RETURN. WILL CONTINUE TO MONITOR.
[2017-07-16 08:09] LABS: CALCIUM, SERUM 7.6 mg/dL (8.5-10.1); CREATININE 0.5 mg/dL (0.6-1.3)
[2017-07-16 08:27] LABS: POTASSIUM 3.6 mmol/L (3.5-5.1)
[2017-07-16] MEDS: ASPIRIN 81 MG TAB.CHEW PO SCH (08:53)
[2017-07-16] MEDS: MEGESTROL ACETATE SUSP 400 MG/10 ML UDC GT SCH ×3 (08:54→16:50)
[2017-07-16] MEDS: DIVALPROEX SODIUM 250 MG TABLET.DR PO SCH (08:54)
[2017-07-16] MEDS: risperiDONE 1 MG TABLET PO SCH (08:54)
[2017-07-16] MEDS: FLUTICASONE/VILANTEROL 1 EACH BLST.W.DEV IH SCH (08:54)
[2017-07-16] MEDS: AMLODIPINE BESYLATE 5 MG TABLET PO SCH (08:54)
[2017-07-16] MEDS: HYDROGEL DRESSING 90 GM TUBE TP SCH (08:58)
[2017-07-16] MEDS: ENOXAPARIN SODIUM 40 MG/0.4 ML DISP.SYRIN SQ SCH (09:00)
--- NOTE | 2017-07-16 12:00 | NUR ---
MS RN NOTES PATIENT SEEN AND EVALUATED BY DR. RIBEIRO ORDERS NOTED AND CARRIED OUT.
[2017-07-16] MEDS ORDERED: POTASSIUM CHLORIDE 20 MEQ POWDER PACKET PO SCH (12:30)
[2017-07-16 16:00] VITALS: BP 135/82
[2017-07-16 16:28] LABS: CALCIUM, SERUM 7.6 mg/dL (8.5-10.1); CREATININE 0.6 mg/dL (0.6-1.3); POTASSIUM 3.3 mmol/L (3.5-5.1)
--- NOTE | 2017-07-16 18:14 | NUR ---
MS RN NOTES PATIENT IN BED RESTING NO SOB OR ACUTE DISTRESS NOTED. ALL DUE MEDICATIONS ADMINISTERED. ALL NEEDS MET. PATIENT WITH PERIPHERAL IV ON RIGHT HAND INTACT PATENT. WILL ENDORSE CARE TO PM SHIFT.
--- NOTE | 2017-07-16 19:50 | NUR ---
MS RN NOTES PATIENT RECEIVED RESTING INSIDE ROOM. BREATHING EVEN AND UNLABORED. DENIES ANY PAIN OR DISCOMFORT. NO SOB OR ACUTE DISTRESS NOTED. PATIENT CALM AND RELAXED. NO CHANGES IN LOC NOTED AT THIS TIME. IV SITE ON RIGHT HAND PATENT AND INTACT, NO BLEEDING OR SWELLING NOTED. WILL CONTINUE TO MONITOR. BED LOCKED AND IN LOW POSITION, BILATERAL UPPER SIDE RAILS UP AND LOCKED. CALL LIGHT WITHIN EASY REACH
[2017-07-16 20:00] VITALS: BP 125/73
[2017-07-16 20:58] LABS: CALCIUM, SERUM 7.7 mg/dL (8.5-10.1); CREATININE 0.6 mg/dL (0.6-1.3); POTASSIUM 3.8 mmol/L (3.5-5.1)
[2017-07-16] MEDS ORDERED: MUPIROCIN OINT 2% 22 GM TUBE ONE (21:13)
[2017-07-16] MEDS: MUPIROCIN OINT 2% 22 GM TUBE SCH (21:22)
--- NOTE | 2017-07-16 22:00 | NUR ---
MS RN NOTES BED BATH PROVIDED TO PATIENT. LINEN CHANGED. DRESSING ON SACRAL AREA CHANGED. PERICARE PROVIDED. PATIENT TURNED AND REPOSITIONED WITH POSTIONING PILLOWS FOR CIRCULATION AND COMFORT. MAINTAINED CONTACT ISOLATION PRECAUTION. WILL CONTINUE TO MONITOR
--- NOTE | 2017-07-17 06:39 | NUR ---
MS RN NOTES PATIENT RESTING INSIDE ROOM. AWAKE, ALERT AND ORIENTED WITH PERIODS OF FORGETFULNESS. NO SOB OR ACUTE DISTRESS NOTED AT THIS TIME, BREATHING EVEN AND UNLABORED. DENIES ANY PAIN OR DISCOMFORT. PATIENT AFEBRILE, SKIN DRY AND WARM TO TOUCH, NO CHANGES IN LOC NOTED AT THIS TIME. WILL CONTINUE TO MONITOR. ALL NURSING NEEDS ATTENDED AND MET. ALL DUE MEDICATIONS GIVEN AND TOLERATED WELL. PERICARE PROVIDED, PATIENT KEPT CLEAN, DRY AND COMFORTABLE. PROVIDED WITH CALM, SAFE, HAZARD-FREE ENVIRONMENT. WILL ENDORSE TO INCOMING SHIFT
[2017-07-17 08:00] VITALS: BP 120/72
[2017-07-17] MEDS: PANTOPRAZOLE 40 MG TABLET.DR PO SCH (08:40)
[2017-07-17] MEDS: risperiDONE 1 MG TABLET PO SCH (08:41)
[2017-07-17] MEDS: MUPIROCIN OINT 2% 22 GM TUBE SCH (08:41)
[2017-07-17] MEDS: MEGESTROL ACETATE SUSP 400 MG/10 ML UDC GT SCH ×3 (08:41→18:00)
[2017-07-17] MEDS: ASPIRIN 81 MG TAB.CHEW PO SCH (08:41)
[2017-07-17] MEDS: DIVALPROEX SODIUM 250 MG TABLET.DR PO SCH (08:41)
[2017-07-17] MEDS: ENOXAPARIN SODIUM 40 MG/0.4 ML DISP.SYRIN SQ SCH (08:42)
[2017-07-17] MEDS: AMLODIPINE BESYLATE 5 MG TABLET PO SCH (09:20)
[2017-07-17] MEDS: HYDROGEL DRESSING 90 GM TUBE TP SCH (09:20)
[2017-07-17] MEDS: FLUTICASONE/VILANTEROL 1 EACH BLST.W.DEV IH SCH (12:21)
[2017-07-17 16:00] VITALS: BP 88/53
== END 2017-07-17 18:15 | DRG 682 ==
LOC: ER 20:16 → TELE 07-14 00:16 → MEDSG2 07-14 01:42 → TELE 07-14 02:10 → MED 07-14 11:02
PROVIDERS: ADMIT Nurse Practitioner Acute Care; ATTEND Internal Medicine
DX: N17.0 Acute kidney failure with tubular necrosis (principal); I21.A1 Myocardial infarction type 2; G93.40 Encephalopathy, unspecified; L89.150 Pressure ulcer of sacral region, unstageable; E87.0 Hyperosmolality and hypernatremia; E87.2 Acidosis; F03.90 Unspecified dementia, unspecified severity, without behavioral disturbance, psychotic disturbance, mood disturbance, and anxiety; I67.2 Cerebral atherosclerosis; T76.01XA Adult neglect or abandonment, suspected, initial encounter; D75.1 Secondary polycythemia; Z68.1 Body mass index [BMI] 19.9 or less, adult; E86.0 Dehydration; I25.2 Old myocardial infarction; Z86.73 Personal history of transient ischemic attack (TIA), and cerebral infarction without residual deficits; Z22.322 Carrier or suspected carrier of Methicillin resistant Staphylococcus aureus; F99 Mental disorder, not otherwise specified; E87.6 Hypokalemia; R09.02 Hypoxemia; I25.10 Atherosclerotic heart disease of native coronary artery without angina pectoris
CPT/HCPCS: 36415; 71045-TC; 80048-TC; 80053-TC; 80061-TC; 80076-TC; 80164-TC; 81000-TC; 83605-TC; 83735-TC; 83880; 84100-TC; 84443-TC; 84484-TC; 85025-TC; 85730-TC; 87040-TC; 87081-TC; 87086-TC; A4216; A4606; A6248; J1650; J2543; J3480; J3490; J7030; J7040; J7060; J7070; Z7610

== ENCOUNTER 2018-12-18 12:10 | Inpatient (IN) | payer MEDICARE, MEDICAID ==
[~2018-12-18] VITALS: Ht 162.6 cm; Wt 58.5 kg
[~2018-12-18 12:10] MED LIST changes: -AMLO5TAB2 PO; +AMLO5TAB9 PO; -OMEP20CA10 PO; +OMEP20CA11 PO
[2018-12-18] MEDS ORDERED: ALBUTEROL FS 2.5 MG/3 ML VIAL.NEB NEB ONE (12:30)
[2018-12-18] MEDS ORDERED: ALBUTEROL FS 2.5 MG/3 ML VIAL.NEB ONE (12:36)
[2018-12-18 12:39] LABS: BASOPHILS % (AUTO) 0.2 % (0.0-2.0); EOSINOPHILS % (AUTO) 0.4 % (0.0-6.0); HEMATOCRIT 45 % (33-45); HEMOGLOBIN 14.5 g/dL (11.5-14.8); LYMPHOCYTES # (AUTO) 1.2 /CMM (0.8-4.8); LYMPHOCYTES % (AUTO) 7.2 % (20.0-44.0); MEAN CORPUSCULAR HGB CONC 32 g/dl (31.0-36.0); MEAN CORPUSCULAR VOLUME 76 fL (82-100); MONOCYTES # (AUTO) 1.5 /CMM (0.1-1.30); MONOCYTES % (AUTO) 8.7 % (2.0-12.0); NEUTROPHILS % (AUTO) 83.5 % (43.0-81.0); PLATELET COUNT (AUTO) 272 /CMM (150-450); RED BLOOD CELL COUNT(AUTO) 5.91 MIL/uL (4.0-5.2); WHITE BLOOD COUNT (AUTO) 16.8 K/uL (4.3-11.0)
[2018-12-18 12:44] LABS: CALCIUM, SERUM 9.8 mg/dL (8.5-10.1); CARBON DIOXIDE 29 mmol/L (21-32); CHLORIDE 102 mmol/L (98-107); CREATININE 0.8 mg/dL (0.6-1.3); GLUCOSE 155 mg/dL (74-106); SODIUM SERUM 138 mmol/L (136-145); UREA NITROGEN, BLOOD 25 mg/dL (7-18)
[2018-12-18] MEDS ORDERED: LACT10SO PO (12:53)
[2018-12-18] MEDS ORDERED: POLY17PO4 PO (12:53)
[2018-12-18] MEDS ORDERED: HYDR-4384 PO (12:53)
[2018-12-18] MEDS ORDERED: LACT-215 PO (12:53)
[2018-12-18] MEDS ORDERED: IPRA0.2S49 IH (12:53)
[2018-12-18] MEDS ORDERED: CHOL10002 PO (12:53)
[2018-12-18] MEDS ORDERED: ACET-868 PO (12:53)
[2018-12-18] MEDS ORDERED: MULT1TAB73 PO (12:53)
[2018-12-18] MEDS ORDERED: PROT946L PO (12:53)
[2018-12-18] MEDS ORDERED: DOCU-141 PO (12:53)
[2018-12-18] MEDS ORDERED: RISP1TAB7 PO (12:53)
[2018-12-18] MEDS ORDERED: CALC-494 PO (12:53)
[2018-12-18] MEDS ORDERED: ASCO500T8 PO (12:53)
[2018-12-18] MEDS ORDERED: BISA10SU11 RC (12:53)
[2018-12-18] MEDS ORDERED: AMLO5TAB4 PO (12:53)
[2018-12-18 12:56] LABS: ALANINE AMINOTRANSFERASE 18 U/L (12-78); ALBUMIN 3.3 g/dL (3.4-5.0); ALKALINE PHOSPHATASE 54 U/L (46-116); ASPARTATE AMINOTRANSFERASE 22 U/L (15-37); B-TYPE NATRIURETIC PEPTIDE 594 PG/ML (0-125); BILIRUBIN,DIRECT 0.1 mg/dL (0.0-0.2); BILIRUBIN,TOTAL 0.3 mg/dL (0.2-1.0); TOTAL PROTEIN, SERUM 9.9 g/dL (6.4-8.2)
[2018-12-18] MEDS ORDERED: PIPERACILLIN /TAZOBACTAM 3.375 G in IV D5W 50 ML IV ONE (13:00)
[2018-12-18] MEDS ORDERED: IV NS 0.9% 1,000 ML BAG IV ONE ×2 (13:00→17:00)
[2018-12-18] MEDS ORDERED: VANCOMYCIN 1 GM in IV D5W 250 ML IV ONE ×2 (13:00→17:00)
[2018-12-18] MEDS ORDERED: ACETAMINOPHEN ES 500 MG TABLET PO ONE (13:00)
[2018-12-18] MEDS ORDERED: ACETAMINOPHEN ES 500 MG TABLET ONE (13:09)
[2018-12-18 13:34] LABS: APPEARANCE,URINE Cloudy (CLEAR); BILIRUBIN,URINE Negative (NEGATIVE); BLOOD, URINE Large Ery/uL (NEGATIVE); COLOR,URINE Yellow (YELLOW); KETONES,URINE Negative (NEGATIVE); LEUKOCYTE ESTERASE ,URINE Large (NEGATIVE); NITRITE, URINE Negative (NEGATIVE); PH,URINE 8.5 (5.0-8.0); PROTEIN,URINE 100 mg/dl (NEGATIVE); UGLUCOSE Negative (NEGATIVE); UROBILINOGEN,URINE 0.2 EU/dL (0.2)
[2018-12-18 13:48] LABS: BACTERIA,URINE Moderate /HPF (None Seen); SQUAMOUS EPITHELIAL CELL,UR Few /HPF (None Seen); WBC,URINE 80-100 /HPF (0-3)
[2018-12-18] MEDS ORDERED: IPRATROPIUM NEB FS 0.5 MG/2.5 ML AMPUL.NEB IH PRN (15:00)
[2018-12-18 16:00] VITALS: BP 125/71
[2018-12-18] MEDS ORDERED: ONDANSETRON HCL/PF 4 MG/2 ML VIAL IVP PRN (17:00)
[2018-12-18] MEDS ORDERED: FEE PK DOSING 1 MIN EA MC ONE (17:03)
[2018-12-18] MEDS ORDERED: Z GUARD REMEDY 2 OZ OINT TP PRN (17:30)
[2018-12-18] MEDS: CALCIUM CARBONATE 500 MG TAB.CHEW PO SCH (18:16)
[2018-12-18] MEDS: FLUTICASONE/VILANTEROL 1 EACH BLST.W.DEV IH SCH (18:16)
[2018-12-18 19:52] LABS: ALANINE AMINOTRANSFERASE 15 U/L (12-78); ALBUMIN 2.6 g/dL (3.4-5.0); ALKALINE PHOSPHATASE 39 U/L (46-116); ASPARTATE AMINOTRANSFERASE 16 U/L (15-37); BILIRUBIN,DIRECT 0.1 mg/dL (0.0-0.2); BILIRUBIN,TOTAL 0.4 mg/dL (0.2-1.0); CALCIUM, SERUM 8.4 mg/dL (8.5-10.1); CARBON DIOXIDE 27 mmol/L (21-32); CHLORIDE 107 mmol/L (98-107); CREATININE 0.8 mg/dL (0.6-1.3); GLUCOSE 123 mg/dL (74-106); POTASSIUM 4.6 mmol/L (3.5-5.1); SODIUM SERUM 141 mmol/L (136-145); TOTAL PROTEIN, SERUM 7.6 g/dL (6.4-8.2); UREA NITROGEN, BLOOD 20 mg/dL (7-18)
[2018-12-18 20:00] VITALS: BP 150/73
[2018-12-18] MEDS ORDERED: PIPERACILLIN /TAZOBACTAM 3.375 G in IV D5W 50 ML IV SCH (20:00)
[2018-12-18] MEDS: MEROPENEM 1 G in IV NS 0.9% 100 ML IV SCH (21:27)
[2018-12-19] VITALS: BP 114/82
[2018-12-19 04:00] VITALS: BP 111/55
[2018-12-19] MEDS: ACETAMINOPHEN 325 MG TABLET PO PRN (05:13)
[2018-12-19 06:10] VITALS: BP 132/76
[2018-12-19 06:29] LABS: BASOPHILS # (AUTO) 0.1 /CMM (0.0-0.2); BASOPHILS % (AUTO) 0.4 % (0.0-2.0); EOSINOPHILS % (AUTO) 1.5 % (0.0-6.0); HEMATOCRIT 35 % (33-45); HEMOGLOBIN 11.3 g/dL (11.5-14.8); LYMPHOCYTES % (AUTO) 13.4 % (20.0-44.0); MEAN CORPUSCULAR HGB CONC 32 g/dl (31.0-36.0); MEAN CORPUSCULAR VOLUME 76 fL (82-100); MONOCYTES # (AUTO) 1.8 /CMM (0.1-1.30); MONOCYTES % (AUTO) 12.5 % (2.0-12.0); NEUTROPHILS # (AUTO) 10.7 /CMM (1.8-8.9); NEUTROPHILS % (AUTO) 72.2 % (43.0-81.0); PLATELET COUNT (AUTO) 223 /CMM (150-450); RED BLOOD CELL COUNT(AUTO) 4.63 MIL/uL (4.0-5.2); WHITE BLOOD COUNT (AUTO) 14.8 K/uL (4.3-11.0)
[2018-12-19] MEDS: IV NS 0.9% 1,000 ML IV PRN ×2 (06:36→18:26)
[2018-12-19] MEDS: VANCOMYCIN 1 GM in IV D5W 250 ML IV SCH (06:36)
[2018-12-19 06:38] LABS: ALANINE AMINOTRANSFERASE 16 U/L (12-78); ALBUMIN 2.5 g/dL (3.4-5.0); ALKALINE PHOSPHATASE 37 U/L (46-116); ASPARTATE AMINOTRANSFERASE 17 U/L (15-37); BILIRUBIN,TOTAL 0.4 mg/dL (0.2-1.0); CALCIUM, SERUM 8.7 mg/dL (8.5-10.1); CALCIUM, SERUM 8.8 mg/dL (8.5-10.1); CARBON DIOXIDE 26 mmol/L (21-32); CHLORIDE 109 mmol/L (98-107); CHLORIDE 111 mmol/L (98-107); CREATININE 0.6 mg/dL (0.6-1.3); CREATININE 0.7 mg/dL (0.6-1.3); GLUCOSE 98 mg/dL (74-106); GLUCOSE 99 mg/dL (74-106); SODIUM SERUM 142 mmol/L (136-145); SODIUM SERUM 144 mmol/L (136-145); TOTAL PROTEIN, SERUM 7.6 g/dL (6.4-8.2); UREA NITROGEN, BLOOD 15 mg/dL (7-18)
[2018-12-19] MEDS: PANTOPRAZOLE 40 MG TABLET.DR PO SCH (06:53)
[2018-12-19 08:00] VITALS: BP 137/70
[2018-12-19] MEDS: FLUTICASONE/VILANTEROL 1 EACH BLST.W.DEV IH SCH (08:09)
[2018-12-19] MEDS: risperiDONE 1 MG TABLET PO SCH (08:10)
[2018-12-19] MEDS: MULTIVITAMINS,THERAGRAN 1 UDTAB TABLET PO SCH (08:10)
[2018-12-19] MEDS: ASCORBIC ACID 500 MG TABLET PO SCH (08:10)
[2018-12-19] MEDS: DAKINS FULL STRENGTH (0.5%) 480 ML BOTTLE TOP SCH (08:10)
[2018-12-19] MEDS: MEROPENEM 1 G in IV NS 0.9% 100 ML IV SCH ×2 (08:10→21:21)
[2018-12-19] MEDS: LACTOBACILLUS RHAMNOSUS GG 1 EACH CAP.SPRINK PO SCH ×2 (09:04→17:10)
[2018-12-19 16:00] VITALS: BP 164/76
[2018-12-19] MEDS: HYDROGEL DRESSING 90 GM TUBE TP SCH ×2 (16:01→21:25)
[2018-12-19] MEDS: CALCIUM CARBONATE 500 MG TAB.CHEW PO SCH (17:09)
[2018-12-19 20:00] VITALS: BP 145/66
[2018-12-20] MEDS: VANCOMYCIN 1 GM in IV D5W 250 ML IV SCH (01:18)
[2018-12-20] MEDS: IV NS 0.9% 1,000 ML IV PRN (05:48)
[2018-12-20 07:17] LABS: CALCIUM, SERUM 8.8 mg/dL (8.5-10.1); CARBON DIOXIDE 26 mmol/L (21-32); CHLORIDE 106 mmol/L (98-107); CREATININE 0.5 mg/dL (0.6-1.3); GLUCOSE 83 mg/dL (74-106); POTASSIUM 3.6 mmol/L (3.5-5.1); SODIUM SERUM 141 mmol/L (136-145); UREA NITROGEN, BLOOD 7 mg/dL (7-18)
[2018-12-20 08:00] VITALS: BP 128/64
[2018-12-20] MEDS: LACTOBACILLUS RHAMNOSUS GG 1 EACH CAP.SPRINK PO SCH ×2 (08:50→17:03)
[2018-12-20] MEDS: ASCORBIC ACID 500 MG TABLET PO SCH (08:50)
[2018-12-20] MEDS: PANTOPRAZOLE 40 MG TABLET.DR PO SCH (08:50)
[2018-12-20] MEDS: MULTIVITAMINS,THERAGRAN 1 UDTAB TABLET PO SCH (08:51)
[2018-12-20] MEDS: FLUTICASONE/VILANTEROL 1 EACH BLST.W.DEV IH SCH (08:51)
[2018-12-20] MEDS: risperiDONE 1 MG TABLET PO SCH (08:51)
[2018-12-20] MEDS: MEROPENEM 1 G in IV NS 0.9% 100 ML IV SCH ×2 (08:51→21:07)
[2018-12-20] MEDS: DAKINS FULL STRENGTH (0.5%) 480 ML BOTTLE TOP SCH (08:58)
[2018-12-20] MEDS: HYDROGEL DRESSING 90 GM TUBE TP SCH ×2 (09:42→21:09)
[2018-12-20] MEDS ORDERED: VANCOMYCIN 0.75 GM in IV D5W 250 ML IV SCH (13:00)
[2018-12-20] MEDS: ACETAMINOPHEN 325 MG TABLET PO PRN (15:38)
[2018-12-20 16:00] VITALS: BP 145/84
[2018-12-20] MEDS: CALCIUM CARBONATE 500 MG TAB.CHEW PO SCH (17:03)
[2018-12-20 20:00] VITALS: BP 118/59
[2018-12-21] MEDS: IV NS 0.9% 1,000 ML IV PRN ×2 (01:19→20:47)
[2018-12-21 06:40] LABS: CALCIUM, SERUM 8.5 mg/dL (8.5-10.1); CARBON DIOXIDE 28 mmol/L (21-32); CHLORIDE 106 mmol/L (98-107); CREATININE 0.5 mg/dL (0.6-1.3); GLUCOSE 99 mg/dL (74-106); POTASSIUM 3.6 mmol/L (3.5-5.1); SODIUM SERUM 141 mmol/L (136-145); UREA NITROGEN, BLOOD 6 mg/dL (7-18)
[2018-12-21 08:00] VITALS: BP 133/76
[2018-12-21] MEDS: LACTOBACILLUS RHAMNOSUS GG 1 EACH CAP.SPRINK PO SCH ×2 (08:54→17:16)
[2018-12-21] MEDS: FLUTICASONE/VILANTEROL 1 EACH BLST.W.DEV IH SCH (08:54)
[2018-12-21] MEDS: risperiDONE 1 MG TABLET PO SCH (08:54)
[2018-12-21] MEDS: ASCORBIC ACID 500 MG TABLET PO SCH (08:54)
[2018-12-21] MEDS: PANTOPRAZOLE 40 MG TABLET.DR PO SCH (08:54)
[2018-12-21] MEDS: MULTIVITAMINS,THERAGRAN 1 UDTAB TABLET PO SCH (08:54)
[2018-12-21] MEDS: MEROPENEM 1 G in IV NS 0.9% 100 ML IV SCH ×2 (09:01→20:47)
[2018-12-21] MEDS: DAKINS FULL STRENGTH (0.5%) 480 ML BOTTLE TOP SCH (09:02)
[2018-12-21] MEDS: HYDROGEL DRESSING 90 GM TUBE TP SCH ×2 (09:02→20:48)
[2018-12-21 16:00] VITALS: BP 135/87
[2018-12-21] MEDS: CALCIUM CARBONATE 500 MG TAB.CHEW PO SCH (17:16)
[2018-12-21 20:00] VITALS: BP 148/89
[2018-12-21] MEDS: ACETAMINOPHEN 325 MG TABLET PO PRN (20:46)
[2018-12-21 21:28] VITALS: BP 148/89
[2018-12-22 06:26] VITALS: BP 138/80
[2018-12-22 06:47] LABS: CALCIUM, SERUM 8.6 mg/dL (8.5-10.1); CARBON DIOXIDE 30 mmol/L (21-32); CHLORIDE 105 mmol/L (98-107); CREATININE 0.5 mg/dL (0.6-1.3); GLUCOSE 95 mg/dL (74-106); POTASSIUM 3.8 mmol/L (3.5-5.1); SODIUM SERUM 141 mmol/L (136-145); UREA NITROGEN, BLOOD 6 mg/dL (7-18)
[2018-12-22 08:00] VITALS: BP 146/80
[2018-12-22] MEDS: MULTIVITAMINS,THERAGRAN 1 UDTAB TABLET PO SCH (09:41)
[2018-12-22] MEDS: PANTOPRAZOLE 40 MG TABLET.DR PO SCH (09:41)
[2018-12-22] MEDS: risperiDONE 1 MG TABLET PO SCH (09:41)
[2018-12-22] MEDS: LACTOBACILLUS RHAMNOSUS GG 1 EACH CAP.SPRINK PO SCH ×2 (09:41→17:17)
[2018-12-22] MEDS: ASCORBIC ACID 500 MG TABLET PO SCH (09:41)
[2018-12-22] MEDS: MEROPENEM 1 G in IV NS 0.9% 100 ML IV SCH ×2 (09:57→21:43)
[2018-12-22] MEDS: FLUTICASONE/VILANTEROL 1 EACH BLST.W.DEV IH SCH (09:57)
[2018-12-22] MEDS: DAKINS FULL STRENGTH (0.5%) 480 ML BOTTLE TOP SCH (09:59)
[2018-12-22] MEDS: HYDROGEL DRESSING 90 GM TUBE TP SCH ×2 (09:59→21:42)
[2018-12-22] MEDS: IV NS 0.9% 1,000 ML IV PRN ×2 (10:02→22:27)
[2018-12-22 16:00] VITALS: BP 135/74
[2018-12-22] MEDS: CALCIUM CARBONATE 500 MG TAB.CHEW PO SCH (17:17)
[2018-12-23] MEDS: PANTOPRAZOLE 40 MG TABLET.DR PO SCH (06:07)
[2018-12-23 06:49] LABS: CALCIUM, SERUM 8.8 mg/dL (8.5-10.1); CARBON DIOXIDE 25 mmol/L (21-32); CHLORIDE 105 mmol/L (98-107); CREATININE 0.4 mg/dL (0.6-1.3); GLUCOSE 91 mg/dL (74-106); POTASSIUM 4.2 mmol/L (3.5-5.1); SODIUM SERUM 139 mmol/L (136-145); UREA NITROGEN, BLOOD 7 mg/dL (7-18)
[2018-12-23 08:00] VITALS: BP 152/84
[2018-12-23] MEDS: risperiDONE 1 MG TABLET PO SCH (08:12)
[2018-12-23] MEDS: MEROPENEM 1 G in IV NS 0.9% 100 ML IV SCH ×2 (08:12→20:51)
[2018-12-23] MEDS: ASCORBIC ACID 500 MG TABLET PO SCH (08:12)
[2018-12-23] MEDS: LACTOBACILLUS RHAMNOSUS GG 1 EACH CAP.SPRINK PO SCH ×2 (08:12→17:06)
[2018-12-23] MEDS: MULTIVITAMINS,THERAGRAN 1 UDTAB TABLET PO SCH (08:12)
[2018-12-23] MEDS: IV NS 0.9% 1,000 ML IV PRN (08:18)
[2018-12-23] MEDS: HYDROGEL DRESSING 90 GM TUBE TP SCH ×2 (08:19→20:52)
[2018-12-23] MEDS: FLUTICASONE/VILANTEROL 1 EACH BLST.W.DEV IH SCH (08:19)
[2018-12-23] MEDS: CALCIUM CARBONATE 500 MG TAB.CHEW PO SCH (17:06)
[2018-12-23] MEDS: ACETAMINOPHEN 325 MG TABLET PO PRN (17:11)
[2018-12-23 20:00] VITALS: BP 134/75
[2018-12-24] MEDS: IV NS 0.9% 1,000 ML IV PRN ×2 (03:02→18:45)
[2018-12-24 06:24] LABS: BASOPHILS # (AUTO) 0.1 /CMM (0.0-0.2); BASOPHILS % (AUTO) 0.6 % (0.0-2.0); EOSINOPHILS % (AUTO) 7.8 % (0.0-6.0); HEMATOCRIT 37 % (33-45); HEMOGLOBIN 12.1 g/dL (11.5-14.8); LYMPHOCYTES # (AUTO) 2.2 /CMM (0.8-4.8); LYMPHOCYTES % (AUTO) 25.3 % (20.0-44.0); MEAN CORPUSCULAR HGB CONC 32 g/dl (31.0-36.0); MEAN CORPUSCULAR VOLUME 76 fL (82-100); MONOCYTES # (AUTO) 1.2 /CMM (0.1-1.30); MONOCYTES % (AUTO) 13.4 % (2.0-12.0); NEUTROPHILS # (AUTO) 4.7 /CMM (1.8-8.9); NEUTROPHILS % (AUTO) 52.9 % (43.0-81.0); PLATELET COUNT (AUTO) 317 /CMM (150-450); RED BLOOD CELL COUNT(AUTO) 4.92 MIL/uL (4.0-5.2); WHITE BLOOD COUNT (AUTO) 8.9 K/uL (4.3-11.0)
[2018-12-24 06:35] LABS: CALCIUM, SERUM 8.8 mg/dL (8.5-10.1); CARBON DIOXIDE 25 mmol/L (21-32); CHLORIDE 106 mmol/L (98-107); CREATININE 0.4 mg/dL (0.6-1.3); GLUCOSE 87 mg/dL (74-106); MAGNESIUM 1.8 mg/dL (1.8-2.4); PHOSPHORUS 3.6 mg/dL (2.5-4.9); POTASSIUM 4.7 mmol/L (3.5-5.1); SODIUM SERUM 138 mmol/L (136-145); UREA NITROGEN, BLOOD 9 mg/dL (7-18)
[2018-12-24] MEDS: PANTOPRAZOLE 40 MG TABLET.DR PO SCH (07:40)
[2018-12-24] MEDS: risperiDONE 1 MG TABLET PO SCH (08:10)
[2018-12-24] MEDS: MULTIVITAMINS,THERAGRAN 1 UDTAB TABLET PO SCH (08:10)
[2018-12-24] MEDS: LACTOBACILLUS RHAMNOSUS GG 1 EACH CAP.SPRINK PO SCH ×2 (08:10→17:00)
[2018-12-24] MEDS: ASCORBIC ACID 500 MG TABLET PO SCH (08:10)
[2018-12-24] MEDS: HYDROGEL DRESSING 90 GM TUBE TP SCH ×2 (08:20→20:57)
[2018-12-24] MEDS: FLUTICASONE/VILANTEROL 1 EACH BLST.W.DEV IH SCH (08:59)
[2018-12-24] MEDS: MEROPENEM 1 G in IV NS 0.9% 100 ML IV SCH ×2 (09:02→20:49)
[2018-12-24] MEDS: CALCIUM CARBONATE 500 MG TAB.CHEW PO SCH (17:00)
[2018-12-24 20:00] VITALS: BP 146/64
[2018-12-25] MEDS: IV NS 0.9% 1,000 ML IV PRN ×2 (07:38→21:39)
[2018-12-25 08:00] VITALS: BP 136/86
[2018-12-25] MEDS: PANTOPRAZOLE 40 MG TABLET.DR PO SCH (08:40)
[2018-12-25] MEDS: ASCORBIC ACID 500 MG TABLET PO SCH (08:40)
[2018-12-25] MEDS: ACETAMINOPHEN 325 MG TABLET PO PRN (08:40)
[2018-12-25] MEDS: MULTIVITAMINS,THERAGRAN 1 UDTAB TABLET PO SCH (08:40)
[2018-12-25] MEDS: LACTOBACILLUS RHAMNOSUS GG 1 EACH CAP.SPRINK PO SCH ×2 (08:40→17:35)
[2018-12-25] MEDS: risperiDONE 1 MG TABLET PO SCH (08:40)
[2018-12-25] MEDS: FLUTICASONE/VILANTEROL 1 EACH BLST.W.DEV IH SCH (08:46)
[2018-12-25] MEDS: HYDROGEL DRESSING 90 GM TUBE TP SCH ×2 (09:37→20:12)
[2018-12-25] MEDS: MEROPENEM 1 G in IV NS 0.9% 100 ML IV SCH (09:58)
[2018-12-25] MEDS: CALCIUM CARBONATE 500 MG TAB.CHEW PO SCH (17:36)
[2018-12-25 20:00] VITALS: BP 152/78
[2018-12-26] MEDS: ACETAMINOPHEN 325 MG TABLET PO PRN (00:01)
[2018-12-26 08:00] VITALS: BP 167/86
[2018-12-26] MEDS: LACTOBACILLUS RHAMNOSUS GG 1 EACH CAP.SPRINK PO SCH (08:57)
[2018-12-26] MEDS: PANTOPRAZOLE 40 MG TABLET.DR PO SCH (08:57)
[2018-12-26] MEDS: risperiDONE 1 MG TABLET PO SCH (08:57)
[2018-12-26] MEDS: MULTIVITAMINS,THERAGRAN 1 UDTAB TABLET PO SCH (08:58)
[2018-12-26] MEDS: ASCORBIC ACID 500 MG TABLET PO SCH (08:58)
[2018-12-26] MEDS: FLUTICASONE/VILANTEROL 1 EACH BLST.W.DEV IH SCH (09:08)
[2018-12-26] MEDS: HYDROGEL DRESSING 90 GM TUBE TP SCH (09:08)
== END 2018-12-26 15:30 | DRG 853 ==
LOC: ER 12:13 → TELE 15:42 → MED 12-19 11:45
PROVIDERS: ADMIT Internal Medicine; ATTEND Family Medicine
PROC: 0KBP0ZZ Excision of Left Hip Muscle, Open Approach (ICD-10-PCS; principal; 2018-12-21)
PROC: 0KBN0ZZ Excision of Right Hip Muscle, Open Approach (ICD-10-PCS; 2018-12-21)
DX: A41.9 Sepsis, unspecified organism (principal); L89.154 Pressure ulcer of sacral region, stage 4; J15.6 Pneumonia due to other Gram-negative bacteria; G93.41 Metabolic encephalopathy; I50.32 Chronic diastolic (congestive) heart failure; N39.0 Urinary tract infection, site not specified; I11.0 Hypertensive heart disease with heart failure; R65.20 Severe sepsis without septic shock; F03.90 Unspecified dementia, unspecified severity, without behavioral disturbance, psychotic disturbance, mood disturbance, and anxiety; Z87.440 Personal history of urinary (tract) infections; I25.10 Atherosclerotic heart disease of native coronary artery without angina pectoris; Z96.641 Presence of right artificial hip joint; Z79.899 Other long term (current) drug therapy; E78.5 Hyperlipidemia, unspecified; J44.9 Chronic obstructive pulmonary disease, unspecified; B96.20 Unspecified Escherichia coli [E. coli] as the cause of diseases classified elsewhere; Z79.51 Long term (current) use of inhaled steroids; Z99.81 Dependence on supplemental oxygen
CPT/HCPCS: 36415; 71045-TC; 80048-TC; 80053-TC; 80076-TC; 80202-TC; 81000-TC; 83605-TC; 83735-TC; 83880; 84100-TC; 84484-TC; 85025-TC; 85730-TC; 87040-TC; 87081-TC; 87086-TC; 87186-TC; A6248; A6253; A6403; G0378; J2185; J2543; J3370; J7030; J7060